=== PATIENT | female | born 1980 | race Caucasian/White ===

== ENCOUNTER 2017-01-25 14:54 | Emergency (ER) | payer BC, OTHER ==
[~2017-01-25] VITALS: Ht 177.8 cm; Wt 74.8 kg
[2017-01-25] MEDS: HYDROCODONE/APAP 5-325MG TABLET PO ONE (15:17)
[2017-01-25] MEDS ORDERED: HYDROCODONE/APAP 5-325MG TABLET ONE (15:32)
--- NOTE | 2017-01-25 17:25 | NUR ---
Patient discharged to home in stable conditon. Written and verbal after care instructions given. Patient verbalizes understanding of instructions.
== END 2017-01-25 17:25 | disposition home or self-care (01) ==
LOC: ER 14:55
DX: S93.692A Other sprain of left foot, initial encounter (principal); G43.909 Migraine, unspecified, not intractable, without status migrainosus; Z88.8 Allergy status to other drugs, medicaments and biological substances; W11.XXXA Fall on and from ladder, initial encounter; Y93.89 Activity, other specified; Y92.89 Other specified places as the place of occurrence of the external cause; Y99.8 Other external cause status
CPT/HCPCS: 73630; 73650; A4663